=== PATIENT | female | born 1975 | race Caucasian/White ===

== ENCOUNTER 2024-10-15 08:49 | Outpatient (CLI) | payer OTHER, SELFPAY ==
--- NOTE | 2024-10-15 08:55 | US_ITS ---
WS: [id number] DIAGNOSTIC BILATERAL DIGITAL BREAST TOMOSYNTHESIS MAMMOGRAPHY WITH CAD RIGHT breast ultrasound, limited HISTORY: N63.10 - Unspecified lump in the right breast, palpable area in the RIGHT axilla. COMPARISON: 08/25/2023, 08/09/2022, 07/22/2021, 10/19/2016 TECHNIQUE: Bilateral craniocaudad, mediolateral oblique, and mediolateral views are submitted with to mosynthesis and SM. Spot compression RIGHT MLO. Computer aided detection utilized. Breast composition: The breasts are extremely dense, which lowers the sensitivity of mammography. Very dense fibroglandular tissue with a few scattered calcifications. Breast tissue with fat extends into the RIGHT axilla at the area of the palpable marker. There are a few scattered asymmetries. Les ed asymmetry 7 present on multiple prior examinations. There is very dense fibroglandular tissue exte nding into the RIGHT axilla which is stable. Suspect this may be a hamartoma due to the heterogeneous soft tissue component containing fat. Ultrasound RIGHT breast, limited Ultrasound is directed to the axillary tail and RIGHT axilla. This corresponds to the palpable abnorm ality. There is dense fibroglandular tissue. There is no shadowing or distortion. US/US breast RT limited* [id number] IMPRESSION: BI-RADS: 2 - Benign FOLLOW UP: 1 Year Follow-up
--- NOTE | 2024-10-15 09:00 | MM_ITS ---
WS: [id number] DIAGNOSTIC BILATERAL DIGITAL BREAST TOMOSYNTHESIS MAMMOGRAPHY WITH CAD RIGHT breast ultrasound, limited HISTORY: N63.10 - Unspecified lump in the right breast, palpable area in the RIGHT axilla. COMPARISON: 08/25/2023, 08/09/2022, 07/22/2021, 10/19/2016 TECHNIQUE: Bilateral craniocaudad, mediolateral oblique, and mediolateral views are submitted with to mosynthesis and SM. Spot compression RIGHT MLO. Computer aided detection utilized. Breast composition: The breasts are extremely dense, which lowers the sensitivity of mammography. Very dense fibroglandular tissue with a few scattered calcifications. Breast tissue with fat extends into the RIGHT axilla at the area of the palpable marker. There are a few scattered asymmetries. Les ed asymmetry 7 present on multiple prior examinations. There is very dense fibroglandular tissue exte nding into the RIGHT axilla which is stable. Suspect this may be a hamartoma due to the heterogeneous soft tissue component containing fat. Ultrasound RIGHT breast, limited Ultrasound is directed to the axillary tail and RIGHT axilla. This corresponds to the palpable abnorm ality. There is dense fibroglandular tissue. There is no shadowing or distortion. MM/MM diag BI tomosynthesis [id number] IMPRESSION: BI-RADS: 2 - Benign FOLLOW UP: 1 Year Follow-up
== END 2024-10-15 08:50 | disposition home or self-care (01) ==
LOC: RAD 08:49
PROVIDERS: PCP Nurse Practitioner Family; Visit Provider Nurse Practitioner Family
DX: N63.10 Unspecified lump in the right breast, unspecified quadrant (principal); R92.343 Mammographic extreme density, bilateral breasts; R92.323 Mammographic fibroglandular density, bilateral breasts; R92.1 Mammographic calcification found on diagnostic imaging of breast; N64.89 Other specified disorders of breast
CPT/HCPCS: 76642; 77062; G0279

== ENCOUNTER → 2025-04-17 16:10 | Outpatient (BNVA) | payer OTHER, SELFPAY | PROVIDERS: PCP Nurse Practitioner Family; Visit Provider Nurse Practitioner Family | DX: K62.89 Other specified diseases of anus and rectum (principal) | CPT/HCPCS: 80053; 80061; 84443; 85025 ==

== ENCOUNTER 2025-06-05 09:24 | Day surgery (SDC) | payer OTHER, SELFPAY ==
[2025-06-05 09:37] VITALS: BP 126/75; PULSE 64; RESP 18; TEMP 36.3; O2SAT 97; BMI 25.0
--- NOTE | 2025-06-05 09:38 | W.PM.OPSFHP ---
Same Day Surgery H&P Indication for Procedure/HPI DATE OF PROCEDURE: June 05, 2025 CHIEF COMPLAINT/INDICATIONFOR SURGICAL PROCEDURE: encounter for screening colonoscopy PREOP DIAGNOSIS: encounter for screening colonoscopy PLANNED PROCEDURE: Operation Date: 06/05/25 11:00 Proposed Procedures p Colonoscopy 47491 G0121 Z12.11(Not Applicable) - Fredis Irby MD Medications/Allergies* Home Medications ?Medication ?Instructions ?Recorded ?Confirmed ?Type polyethylene glycol 3350 17 gram 17 g PO DAILY 04/30/25 06/02/25 History oral powder packet (Miralax) rizatriptan 10 mg tablet 10 mg PO PRN PRN Migraine Headache 06/02/25 06/02/25 History Allergies/Adverse Reactions Allergy/AdvReac Type Severity Reaction Status Date / Time No Known Allergies Allergy Unverified 04/30/25 14:43 Pertinent History/Comorbid Conditions* Social History Smoking and tobacco/nicotine status: current every day tobacco/nicotine user Alcohol intake: never Substance/Drug Use: never Household members: spouse Housing: House Marital status: Pertinent Exam Findings alert, oriented x 3, clear to auscultation bilaterally and regular rate & rhythm Recommendations Surgery/Procedure today Coding Level of Care Code Acute Code for Chg Fwd
--- NOTE | 2025-06-05 10:00 | ANES.PREANE2 ---
Pre-Anesthetic Assessment Height/Weight: Height 1.65 m Weight 68.039 kg Temp Pulse Resp BP Pulse Ox O2 Del Method 97.3 F L 64 18 126/75 97 Room Air 06/05/25 09:37 06/05/25 09:37 06/05/25 09:37 06/05/25 09:37 06/05/25 09:37 06/05/25 09:37 Preop Diagnosis: encounter for screening colonoscopy Operation Date: 06/05/25 11:00 Proposed Procedures p Colonoscopy 68659 G0121 Z12.11(Not Applicable) - Fredis Irby MD Familial anesthetic complications: none Was Beta Galindo taken within 24 hours: N/A Was Clonidine taken within 24 hours: N/A Last intake: Intake Last Liquid Date 06/04/25 Last Liquid Time 20:00 Last Solid Date 06/03/25 Last Solid Time 19:00 Social No alcohol and No tobacco Exam alert, oriented x 3 and clear to auscultation bilaterally Airway Mallampati: Class II Dentition: full History/ROS No significant history except as noted Pulmonary None reported CV/HEM None reported None reported Hepatic None reported GI None reported Metabolic None reported Musc/skel None reported Neuropsych Frequent headaches Anesthetic Plan ASA status: 1 Anesthesia: MAC Risk of > 500 ml blood loss (7ml/kg in children): Yes, adequate IV access and fluids planned Medications/Allergies Home Medications ?Medication ?Instructions ?Recorded ?Confirmed ?Last Taken ?Type escitalopram oxalate 20 mg tablet 20 mg PO DAILY #90 tabs 04/17/25 06/02/25 06/02/25 Rx ondansetron 8 mg disintegrating 8 mg PO Q8H PRN nausea and 04/30/25 06/02/25 Unknown Rx tablet vomiting #3 tabs polyethylene glycol 3350 17 gram 17 g PO DAILY 04/30/25 06/02/25 06/02/25 History oral powder packet (Miralax) rizatriptan 10 mg tablet 10 mg PO PRN PRN Migraine Headache 06/02/25 06/02/25 05/26/25 History Allergies Allergy/AdvReac Type Severity Reaction Status Date / Time No Known Allergies Allergy Unverified 04/30/25 14:43 Current Medications Generic Name Dose Route Start Last Admin Trade Name Freq PRN Reason Stop Dose Admin Sodium Chloride 1,000 mls @ 30 mls/hr 06/05/25 07:00 06/05/25 09:43 Sodium Chloride 0.9% IV 06/06/25 06:59 30 mls/hr .Q24H ALISON Administration PFSH Anesthesia Social History Smoking and tobacco/nicotine status: current every day tobacco/nicotine user Alcohol intake: never Substance/Drug Use: never Household members: spouse Housing: House Marital status:
[2025-06-05 10:29] LABS: OR HCG Qualitative Urine Negative (Negative)
--- NOTE | 2025-06-05 10:31 | PC.NURSE ---
cecum time 1031
[2025-06-05 10:46] VITALS: BP 71/52; PULSE 52; RESP 16; TEMP 36.3; O2SAT 94
[2025-06-05 10:49] VITALS: BP 81/51; PULSE 63; RESP 16; O2SAT 97
[2025-06-05 10:55] VITALS: BP 100/56; PULSE 61; RESP 16; O2SAT 99
[2025-06-05 11:05] VITALS: BP 98/55; PULSE 62; RESP 16; O2SAT 100
--- NOTE | 2025-06-05 13:13 | ANE.PACU2 ---
Inpatient post-anesthesia follow up: Airway intact: Yes Vital signs: Temperature 97.3 F Pulse Rate 62 Respiratory Rate 16 Blood Pressure 98/55 Pulse Oximetry 100 Oxygen Delivery Me thod Nasal Cannula Oxygen Flow Rate 2 Fraction of Inspir ed Oxygen Hydration adequate: Yes Nausea and vomiting: No Pain level: 1 Mental status: Baseline
== END 2025-06-05 11:30 | disposition home or self-care (01) ==
PROVIDERS: PCP Nurse Practitioner Family; Visit Provider Surgery
PROC: 0DJD8ZZ Inspection of Lower Intestinal Tract, Via Natural or Artificial Opening Endoscopic (ICD-10-PCS; CPT 45378; principal; 2025-06-05 11:00)
DX: Z12.11 Encounter for screening for malignant neoplasm of colon (principal); F17.200 Nicotine dependence, unspecified, uncomplicated
CPT/HCPCS: 45378; 81025; J2704; J7030

== ENCOUNTER → 2025-07-07 16:00 | Outpatient (BNVA) | payer OTHER, SELFPAY | PROVIDERS: PCP Nurse Practitioner Family; Visit Provider Nurse Practitioner Family | DX: R42 Dizziness and giddiness (principal) | CPT/HCPCS: 80053; 80061; 84443; 85025 ==